=== PATIENT | female | born 1950 | race Caucasian/White ===

== ENCOUNTER 2017-12-25 10:02 | Inpatient (IN) | payer MEDICARE, BC ==
[2017-12-23 15:09] LABS: BASOPHILS % (AUTO) 0.4 % (0-1); EOSINOPHILS # (AUTO) 0.2 X10'3 (0-0.9); EOSINOPHILS % (AUTO) 2.4 % (0-6); LYMPHOCYTES # (AUTO) 1.5 X10'3 (1.1-4.8); LYMPHOCYTES % (AUTO) 20.2 % (21-51); MEAN CORPUSCULAR HEMOGLOBIN 29.6 PG (27.0-31.0); MEAN CORPUSCULAR HGB CONC 34.8 % (33.0-36.5); MEAN CORPUSCULAR VOLUME 85.1 FL (78-98); MEAN PLATELET VOLUME 6.7 FL (7.4-10.4); MONOCYTES # (AUTO) 0.5 X10'3 (0-0.9); MONOCYTES % (AUTO) 6.1 % (2-12); NEUTROPHILS # (AUTO) 5.3 X10'3 (1.8-7.7); NEUTROPHILS % (AUTO) 70.9 % (42-75); PRE OP HEMATOCRIT 36.5 % (35.0-45.0); PRE OP HEMOGLOBIN 12.7 g/dL (12.0-16.0); PRE OP PLATELET COUNT 375 X10'3 (140-440); RED BLOOD COUNT 4.29 X10'6 (4.20-5.60); RED CELL DISTRIBUTION WIDTH 13.5 % (11.5-14.5)
[2017-12-23 15:15] LABS: CLARITY,URINE CLEAR (Clear); COLOR,URINE YELLOW (Yellow); GLUCOSE, URINE NEGATIVE (Neg); KETONES,URINE NEGATIVE (Neg); LEUKOCYTE ESTERASE ,URINE TRACE (Neg); NITRITES, URINE NEGATIVE (Neg); OCCULT BLOOD,URINE TRACE-INTACT (Neg); PROTEIN,URINE NEGATIVE (Neg); UROBILINOGEN,URINE 0.2 E.U/dL (0.2-1.0)
[2017-12-23 15:18] LABS: UA COLLECTION TYPE CLN CATCH MIDSTREAM
[2017-12-23 15:20] LABS: TOTAL CARBON DIOXIDE 25.8 MMOL/L (24-32)
[2017-12-23 15:22] LABS: BACTERIA,URINE FEW /HPF (Neg); RBC,URINE 0-2 /HPF (0-2); SQUAMOUS EPITHELIAL CELL,UR FEW /LPF (FEW); WBC,URINE 0-4 /HPF (0-4)
[2017-12-23 15:27] LABS: PRE OP PROTIME 10.3 SECONDS (9.0-12.0)
[2017-12-23 15:54] LABS: ALBUMIN 4.1 G/DL (3.4-5.0); ALBUMIN/GLOBULIN RATIO 1.3 (1.1-1.5); ALKALINE PHOSPHATASE 56 IU/L (46-116); BLOOD UREA NITROGEN 33 MG/DL (7-18); BUN/CREATININE RATIO 32.4 (6.6-38.0); CHLORIDE 103 MMOL/L (99-107); CREATININE 1.02 MG/DL (0.40-0.90); PRE OP ALT 57 U/L (30-65); PRE OP ANION GAP 11 (8-16); PRE OP AST 33 U/L (10-37); PRE OP BILIRUB, TOTAL 0.2 MG/DL (0.0-1.0); PRE OP GLUCOSE 115 MG/DL (70-104); PRE OP POTASSIUM 3.6 MMOL/L (3.4-5.1); PRE OP SODIUM 140 MMOL/L (135-145); TOTAL PROTEIN 7.2 G/DL (6.4-8.2); eGFR 54 ML/MIN
[2017-12-25] VITALS (16 sets, daily range): BP systolic 88–155; BP diastolic 58–96
[~2017-12-25] VITALS: Ht 157.5 cm; Wt 70.0 kg
[~2017-12-25 10:02] MED LIST: Cefazolin 2GM/50ML dext iso,osmotic IVPB IV ONE; DICL75TA5 PO; HYDR-3686 PO; OMEP40CA37 PO; ROSU40TA PO; VALS1TAB81 PO; acetaminophen 325mg tablet PO ONE; celeCOXIB 100mg capsule PO ONE; famotidine 20mg tablet PO ONE; gabapentin 300mg capsule PO ONE; metoclopramide 5 mg/ml inj IV ONE; oxyCODONE SR 10mg (sust. release) tab PO ONE; ringers solution, lacted 1,000 ML IV SCH; vancomycin inj 1,500 MG in normal saline 300ml IV soln IV ONE
[2017-12-25] MEDS ORDERED: cloNIDine hcl/PF 100mcg/ml inj ONE (11:40)
[2017-12-25] MEDS ORDERED: ketorolac trometh. 30mg/ml inj. ONE (11:40)
[2017-12-25] MEDS ORDERED: vancomycin 1,000mg inj ONE (11:40)
[2017-12-25] MEDS ORDERED: epiNEPHrine 1 mg/ml inj ONE (11:40)
[2017-12-25] MEDS ORDERED: ROPIVAcaine 0.5% (5mg/ml) 30ml vial ONE (11:40)
[2017-12-25] MEDS ORDERED: tetracaine 1% (10mg/ml) pres. free inj. ONE (12:00)
[2017-12-25] MEDS ORDERED: morphine sulfate /PF 0.5 MG/ML 10mL ampul ONE (12:02)
[2017-12-25] MEDS ORDERED: fentaNYL/PF 50MCG/1 ML 2ML syringe ONE (12:06)
[2017-12-25] MEDS ORDERED: MIDAZolam 5mg/5ml vial ONE (12:07)
[2017-12-25] MEDS ORDERED: LIDOcaine 1%/PF 5ML 10 MG/ML VIAL ONE (12:08)
[2017-12-25] MEDS ORDERED: propofol inj 20 ML IV ONE (12:08)
[2017-12-25] MEDS ORDERED: tranexamic acid inj. 1,000 MG in normal saline 100ml IV soln 100 ML IV ONE (12:25)
[2017-12-25] MEDS ORDERED: diphenhydrAMINE 50 mg/ml inj ONE (12:43)
[2017-12-25] MEDS ORDERED: ringers solution, lacted 1,000 ML IV SCH (14:01)
[2017-12-25] MEDS ORDERED: naloxone 2mg/2ml inj 1.4 MG in normal saline 500ml IV soln 500 ML IV PRN (14:01)
[2017-12-25] MEDS ORDERED: meperidine/PF 25mg/ml syringe IV PRN ×3 (14:05)
[2017-12-25] MEDS ORDERED: proCHLORperazine 10 MG/2 ml inj IV PRN (14:05)
[2017-12-25] MEDS ORDERED: morphine 4 MG/ML inj SYRINge IV PRN ×2 (14:05)
[2017-12-25] MEDS ORDERED: diphenhydrAMINE 50 mg/ml inj IV PRN (14:05)
[2017-12-25] MEDS ORDERED: ondansetron/PF 4mg/2ml inj IV PRN ×2 (14:05)
[2017-12-25] MEDS ORDERED: ePHEDrine 50MG/ML INJ. ONE (14:31)
[2017-12-25] MEDS ORDERED: meperidine/PF 50mg/ml syringe ONE (14:36)
[2017-12-25] MEDS ORDERED: bisacodyl 10mg suppository rectal RC PRN (14:40)
[2017-12-25] MEDS ORDERED: diphenhydrAMINE 25mg capsule PO PRN ×2 (14:40)
[2017-12-25] MEDS ORDERED: magnesium hydroxide 30ml (MOM) UD suspension PO PRN (14:40)
[2017-12-25] MEDS ORDERED: acetaminophen 325mg tablet PO PRN (14:40)
[2017-12-25] MEDS: potassium cl 20mEq in 1/2 NS 1,000 ML IV SCH (17:17)
[2017-12-25] MEDS: ceFAZolin 1GM/D5W- ADD-VANTAGE 50 ML IV SCH (17:19)
[2017-12-25] MEDS: oxyCODONE IR 5mg (immed. release) tablet PO PRN (19:48)
[2017-12-25] MEDS ORDERED: vancomycin/NS 1 GM ADD-VANTAGE 250 ML IV SCH (20:00)
[2017-12-25] MEDS: sennosides 8.6mg tablet PO SCH (20:49)
[2017-12-25] MEDS: acetaminophen 325mg tablet PO SCH (20:50)
[2017-12-25] MEDS: ascorbic acid 500mg tablet PO SCH (20:50)
[2017-12-25] MEDS: gabapentin 300mg capsule PO SCH (20:50)
[2017-12-26] MEDS: ceFAZolin 1GM/D5W- ADD-VANTAGE 50 ML IV SCH (00:09)
[2017-12-26] MEDS: oxyCODONE IR 5mg (immed. release) tablet PO PRN ×5 (00:09→18:49)
[2017-12-26 02:00] VITALS: BP 93/52
[2017-12-26] MEDS: acetaminophen 325mg tablet PO SCH ×4 (02:32→20:15)
[2017-12-26] MEDS: potassium cl 20mEq in 1/2 NS 1,000 ML IV SCH ×4 (04:32→22:40)
[2017-12-26 05:00] VITALS: BP 83/54
[2017-12-26] MEDS: ondansetron/PF 4mg/2ml inj IV PRN ×3 (06:41→18:54)
[2017-12-26 06:51] LABS: ANION GAP 7 (8-16); CHLORIDE 105 MMOL/L (99-107); POTASSIUM 4.2 MMOL/L (3.5-5.1); SODIUM 137 MMOL/L (135-145); TOTAL CARBON DIOXIDE 24.7 MMOL/L (24-32)
[2017-12-26 07:32] LABS: BASOPHILS % (AUTO) 0.3 % (0-1); EOSINOPHILS % (AUTO) 1.9 % (0-6); HEMOGLOBIN 9.9 g/dl (12.0-16.0); LYMPHOCYTES % (AUTO) 19.5 % (21-51); MEAN CORPUSCULAR HGB CONC 34.2 % (33.0-36.5); MEAN CORPUSCULAR VOLUME 84.8 FL (78-98); MEAN PLATELET VOLUME 6.5 FL (7.4-10.4); MONOCYTES % (AUTO) 9.2 % (2-12); NEUTROPHILS % (AUTO) 69.1 % (42-75); PLATELET COUNT 270 X10'3 (140-440); RED BLOOD COUNT 3.42 X10'6 (4.20-5.60); RED CELL DISTRIBUTION WIDTH 13.3 % (11.5-14.5); WHITE BLOOD COUNT 5.2 X10'3 (4.5-11.0)
[2017-12-26 07:33] LABS: EOSINOPHILS # (AUTO) 0.1 X10'3 (0-0.9); MONOCYTES # (AUTO) 0.5 X10'3 (0-0.9); NEUTROPHILS # (AUTO) 3.6 X10'3 (1.8-7.7)
[2017-12-26] MEDS: aspirin 325mg tablet PO SCH (07:47)
[2017-12-26] MEDS: pantoprazole 40mg Tablet.DR PO SCH (07:48)
[2017-12-26] MEDS: gabapentin 300mg capsule PO SCH ×3 (07:48→20:15)
[2017-12-26] MEDS: ascorbic acid 500mg tablet PO SCH ×2 (07:48→20:15)
[2017-12-26] MEDS: HYDROchlorothiazide 25mg tablet PO SCH (07:49)
[2017-12-26] MEDS: atorvastatin 20mg tablet PO SCH (07:49)
[2017-12-26] MEDS: HYDROmorphone 1 mg/ml syringe IV PRN ×4 (07:50→21:08)
[2017-12-26] MEDS ORDERED: non-formulary drug (Rosuvastatin Calcium* (Crestor*) 1 TAB) PO SCH (08:00)
[2017-12-26] MEDS ORDERED: non-formulary drug (Omeprazole (Prilosec) 1 CAP) PO SCH (08:00)
[2017-12-26] MEDS ORDERED: ASPI-1 PO (08:19)
[2017-12-26 10:36] VITALS: BP 89/56
[2017-12-26 14:00] VITALS: BP 89/56
[2017-12-26 18:00] VITALS: BP 90/56
[2017-12-26] MEDS: sennosides 8.6mg tablet PO SCH (20:17)
[2017-12-26 22:00] VITALS: BP 102/63
[2017-12-27] MEDS: oxyCODONE IR 5mg (immed. release) tablet PO PRN ×5 (00:58→22:01)
[2017-12-27] MEDS: acetaminophen 325mg tablet PO SCH ×3 (01:13→14:00)
[2017-12-27] MEDS ORDERED: normal saline 500ml IV soln 500 ML IV ONE (05:30)
[2017-12-27] MEDS ORDERED: naloxone 0.4 mg/ml inj IV ONE (05:30)
[2017-12-27] MEDS: potassium cl 20mEq in 1/2 NS 1,000 ML IV SCH ×2 (05:43→13:40)
[2017-12-27 05:54] LABS: BASOPHILS % (AUTO) 0.3 % (0-1); EOSINOPHILS % (AUTO) 0.3 % (0-6); HEMATOCRIT 25.9 % (35.0-45.0); HEMOGLOBIN 8.8 g/dl (12.0-16.0); LYMPHOCYTES # (AUTO) 0.9 X10'3 (1.1-4.8); LYMPHOCYTES % (AUTO) 13.6 % (21-51); MEAN CORPUSCULAR HEMOGLOBIN 29.1 PG (27.0-31.0); MEAN CORPUSCULAR HGB CONC 34.1 % (33.0-36.5); MEAN CORPUSCULAR VOLUME 85.4 FL (78-98); MEAN PLATELET VOLUME 6.7 FL (7.4-10.4); MONOCYTES # (AUTO) 0.6 X10'3 (0-0.9); MONOCYTES % (AUTO) 9.1 % (2-12); NEUTROPHILS % (AUTO) 76.7 % (42-75); PLATELET COUNT 239 X10'3 (140-440); RED BLOOD COUNT 3.03 X10'6 (4.20-5.60); RED CELL DISTRIBUTION WIDTH 13.7 % (11.5-14.5); WHITE BLOOD COUNT 6.5 X10'3 (4.5-11.0)
[2017-12-27 06:00] VITALS: BP 102/65
[2017-12-27] MEDS: ondansetron/PF 4mg/2ml inj IV PRN (07:20)
[2017-12-27] MEDS: HYDROchlorothiazide 25mg tablet PO SCH (08:00)
[2017-12-27] MEDS: atorvastatin 20mg tablet PO SCH (08:01)
[2017-12-27] MEDS: aspirin 325mg tablet PO SCH (08:01)
[2017-12-27] MEDS: gabapentin 300mg capsule PO SCH ×3 (08:01→20:04)
[2017-12-27] MEDS: ascorbic acid 500mg tablet PO SCH ×2 (08:01→20:04)
[2017-12-27] MEDS: pantoprazole 40mg Tablet.DR PO SCH (08:01)
[2017-12-27] MEDS: HYDROmorphone 1 mg/ml syringe IV PRN ×2 (08:02→14:35)
[2017-12-27] MEDS: LIDOcaine 5% patch TP SCH (08:02)
[2017-12-27 10:00] VITALS: BP 99/65
[2017-12-27 18:00] VITALS: BP 102/64
[2017-12-27] MEDS: sennosides 8.6mg tablet PO SCH (20:04)
[2017-12-27 22:00] VITALS: BP 119/76
[2017-12-28] MEDS: ondansetron/PF 4mg/2ml inj IV PRN (01:10)
[2017-12-28] MEDS: oxyCODONE IR 5mg (immed. release) tablet PO PRN (02:03)
[2017-12-28] MEDS: HYDROmorphone 1 mg/ml syringe IV PRN (05:56)
[2017-12-28 05:58] LABS: BASOPHILS % (AUTO) 0.2 % (0-1); EOSINOPHILS # (AUTO) 0.1 X10'3 (0-0.9); EOSINOPHILS % (AUTO) 2.1 % (0-6); HEMATOCRIT 25.4 % (35.0-45.0); HEMOGLOBIN 8.7 g/dl (12.0-16.0); LYMPHOCYTES # (AUTO) 1.2 X10'3 (1.1-4.8); MEAN CORPUSCULAR HEMOGLOBIN 28.7 PG (27.0-31.0); MEAN CORPUSCULAR HGB CONC 34.3 % (33.0-36.5); MEAN CORPUSCULAR VOLUME 83.8 FL (78-98); MEAN PLATELET VOLUME 6.3 FL (7.4-10.4); MONOCYTES # (AUTO) 0.5 X10'3 (0-0.9); MONOCYTES % (AUTO) 7.4 % (2-12); NEUTROPHILS # (AUTO) 5.1 X10'3 (1.8-7.7); NEUTROPHILS % (AUTO) 73.3 % (42-75); PLATELET COUNT 265 X10'3 (140-440); RED BLOOD COUNT 3.03 X10'6 (4.20-5.60)
[2017-12-28 06:00] VITALS: BP 111/74
[2017-12-28] MEDS ORDERED: oxyCODONE/APAP 5-325mg tablet PO PRN (06:20)
[2017-12-28] MEDS: LIDOcaine 5% patch TP SCH (07:16)
[2017-12-28] MEDS: gabapentin 300mg capsule PO SCH ×2 (07:21→13:19)
[2017-12-28] MEDS: atorvastatin 20mg tablet PO SCH (07:21)
[2017-12-28] MEDS: HYDROchlorothiazide 25mg tablet PO SCH (07:23)
[2017-12-28] MEDS: ascorbic acid 500mg tablet PO SCH (07:24)
[2017-12-28] MEDS: oxyCODONE/APAP 10/325mg tablet PO PRN ×2 (07:24→13:19)
[2017-12-28 10:00] VITALS: BP 107/63
[2017-12-28] MEDS: pantoprazole 40mg Tablet.DR PO SCH (10:34)
[2017-12-28] MEDS: aspirin 325mg tablet PO SCH (10:34)
== END 2017-12-28 16:18 | disposition home or self-care (01) | DRG 470 ==
LOC: PAS IN 10:02 → EDSTATUS 14:00 → ORTHO 4S 16:23
PROVIDERS: ADMIT Orthopaedic Surgery; ATTEND Orthopaedic Surgery
PROC: 0SR906Z Replacement of Right Hip Joint with Oxidized Zirconium on Polyethylene Synthetic Substitute, Open Approach (ICD-10-PCS; principal; 2017-12-25 12:47)
DX: M16.11 Unilateral primary osteoarthritis, right hip (principal); D62 Acute posthemorrhagic anemia; K21.9 Gastro-esophageal reflux disease without esophagitis; E78.5 Hyperlipidemia, unspecified; I10 Essential (primary) hypertension; M54.5 Low back pain; Z72.89 Other problems related to lifestyle; Z79.899 Other long term (current) drug therapy; Z79.82 Long term (current) use of aspirin; Z87.891 Personal history of nicotine dependence
CPT/HCPCS: 36415; 72170; 80051; 80053; 81001; 85025; 85610; 85730; 86885; 86900; 86901; 87070; 87077; 87088; 87186; 97110; 97116; 97162; 97530; A4615; A6257; A7000; C1758; C1776; J0171; J0690; J0735; J1170; J1200; J1885; J2001; J2175; J2250; J2274; J2405; J2704; J2765; J2795; J3010; J3370; J7030; J7120; Q0163